=== PATIENT | male | born 1955 | race Caucasian/White ===

== ENCOUNTER 2019-02-09 19:55 | Emergency (ER) | payer OTHER ==
[~2019-02-09] VITALS: Ht 185.4 cm; Wt 94.0 kg
[2019-02-09] MEDS ORDERED: SODIUM CHLORIDE 0.9% 1,000 ML IV ONE (22:45)
[2019-02-09 23:39] LABS: HEMATOCRIT 38.2 % (42.0-52.0); HEMOGLOBIN 12.9 g/dL (14.0-18.0); MEAN CORPUSCULAR HEMOGLOBIN 31.1 pg (28.0-32.0); MEAN CORPUSCULAR VOLUME 91.8 fL (80.0-94.0); PLATELET 157 x1000/uL (130-400); RED BLOOD CELL COUNT 4.16 mill/uL (4.7-6.1); RED CELL DISTRIBUTION WIDTH 13.6 % (11.6-14.6)
[2019-02-09 23:47] LABS: CHLORIDE 113 mEq/L (98-107)
[2019-02-10 00:42] VITALS: BP 119/70
[2019-02-10] MEDS ORDERED: ACETAMINOPHEN 500MG TABLET PO ONE (00:45)
== END 2019-02-10 00:42 | disposition home or self-care (01) ==
LOC: ER 19:55
DX: K52.9 Noninfective gastroenteritis and colitis, unspecified (principal); R55 Syncope and collapse; R03.0 Elevated blood-pressure reading, without diagnosis of hypertension
CPT/HCPCS: 36415; 80053; 85027; 93005; 96360; 99284; J7030